=== PATIENT | female | born 1955 | race Caucasian/White ===

== ENCOUNTER 2021-09-04 09:35 | Outpatient (CLI) | payer OTHER, SELFPAY ==
[2021-09-04 10:08] VITALS: BP 115/64; PULSE 99; RESP 20; TEMP 38.3; O2SAT 98; BMI 34.4
[2021-09-04] MEDS: 0.9% Saline Lock 10 ML Syringe IV (10:16)
[2021-09-04] MEDS: Acetaminophen 325 MG Tablet 650 MG PO (10:32)
[2021-09-04 11:09] VITALS: BP 112/63; PULSE 84; RESP 16; TEMP 37.6; O2SAT 94
[2021-09-04 11:49] VITALS: BP 113/58; PULSE 80; RESP 16; TEMP 37.5; O2SAT 94
== END 2021-09-04 12:01 | disposition home or self-care (01) ==
LOC: MS3OUT 09:35 → MS3 09:37
PROVIDERS: Referring Provider Nurse Practitioner Adult Health; Visit Provider Nurse Practitioner Adult Health
DX: Z23 Encounter for immunization (principal); U07.1 COVID-19
CPT/HCPCS: J7050; M0245; Q0245; A4216